=== PATIENT | female | born 1995 | race Caucasian/White ===

== ENCOUNTER → 2024-11-13 | Outpatient (CLI) | payer SELFPAY ==
[~2024-11-13] MED LIST: FERR325T3 PO; MACR100C43 PO; PRENTAB53 PO
== END ==
LOC: M RAD 15:17 → M WHC 15:17
PROVIDERS: ATTEND Advanced Practice Midwife
DX: O09.292 Supervision of pregnancy with other poor reproductive or obstetric history, second trimester (principal); Z3A.23 23 weeks gestation of pregnancy

== ENCOUNTER → 2024-12-17 | Outpatient (REF) | payer SELFPAY ==
[2024-12-17 12:32] LABS: Trichomonas vaginalis (AMP) NOT DETECTED (NEGATIVE)
[2024-12-17 12:55] LABS: GC DNA AMPLIFICATION NEGATIVE (NEGATIVE)
== END ==
LOC: M SFHCWAGY 10:15
PROVIDERS: ATTEND Obstetrics & Gynecology
DX: Z34.82 Encounter for supervision of other normal pregnancy, second trimester (principal)

== ENCOUNTER → 2025-01-07 | Outpatient (CLI) | payer SELFPAY ==
[2025-01-07 13:32] LABS: HEMATOCRIT 34.3 % (36.0-47.0); HEMOGLOBIN 11.6 g/dl (12.0-15.5); MEAN CORPUSCULAR HEMOGLOBIN 31.4 pg (27.0-33.0); MEAN CORPUSCULAR HGB CONC 33.8 g/dl (32.0-36.5); MEAN CORPUSCULAR VOLUME 92.7 fl (80.0-96.0); PLATELET COUNT, AUTOMATED 146 10^3/uL (150-450); WHITE BLOOD COUNT 8.8 10^3/uL (4.0-10.0)
[2025-01-07 14:05] LABS: HIV 1&2 SCREEN NEGATIVE (NEGATIVE)
[2025-01-07 14:13] LABS: HEPATITIS C VIRUS ABY INDEX 0.09 INDEX (<0.8)
== END ==
LOC: M PLALAB 10:33
PROVIDERS: ATTEND Obstetrics & Gynecology
DX: Z34.82 Encounter for supervision of other normal pregnancy, second trimester (principal); Z3A.00 Weeks of gestation of pregnancy not specified